=== PATIENT | female | born 1940 | race Caucasian/White ===

== ENCOUNTER 2016-05-11 10:07 | Inpatient (IN) | payer MEDICARE ==
[2016-05-11] MEDS ORDERED: ALBUTEROL/IPRATROPIUM 2.5/0.5 MG 3 ML/EACH DOSE ONE (11:24)
[2016-05-11] MEDS ORDERED: ONDANSETRON 4 MG/2ML 2 ML VIAL ONE (11:39)
[2016-05-11] MEDS ORDERED: SODIUM CHLORIDE 0.9% 1,000 ML ONE (11:39)
[2016-05-11 11:41] LABS: ABSOLUTE NEUTROPHIL COUNT 2.7 K/mm3 (1.8-7.7); BASO % 0.8 % (0.2-1.0); HEMATOCRIT 37.7 % (37.0-47.0); HEMOGLOBIN 12.4 gm/l (12.0-16.0); IMM NEUT% 0.8 % (0-1); LYMPH # 0.5 (1.0-4.8); LYMPH % 13.2 % (15-45); MEAN CELL VOLUME 94.5 fl (81.0-99.0); MEAN CORPUSCULAR HEMOGLOBIN 31.1 pg (27.0-31.0); MEAN CORPUSCULAR HGB CONC 32.9 g/dl (33.0-37.0); MEAN PLATELET VOLUME 9.4 fl (7.4-10.4); MONO # 0.6 (0.0-0.8); MONO % 14.8 % (4-12); NEUT % 70.4 % (43-75); PLATELET COUNT 226 K/mm3 (130-400); RED CELL DISTRIBUTION WIDTH 16.8 % (11.5-14.5)
[2016-05-11 11:45] LABS: SPECIFIC GRAVITY 1.025 (1.001-1.030); URINE BILIRUBIN NEGATIVE (NEGATIVE); URINE BLOOD 3+ (NEGATIVE); URINE GLUCOSE (UA) NEGATIVE (NEGATIVE); URINE LEUKOCYTE ESTERASE NEGATIVE (NEGATIVE); URINE NITRITE POSITIVE (NEGATIVE); URINE PROTEIN 1+ (NEGATIVE); URINE UROBILINOGEN NORMAL (0-1 mg/dl)
[2016-05-11 11:46] LABS: URINE APPEARANCE CLEAR; URINE COLOR YELLOW
--- NOTE | 2016-05-11 11:48 | RAD ---
History: Cough. Comparison: 06/17/2015. Technique: 2 views Findings: The soft tissue and bony structures are appropriate. The heart size is stable. There is no definite consolidation or effusion visualized. A small nodular focus is suggested within the lateral aspect of the right pulmonary apex, more conspicuous than its appearance on prior examinations. The hilar and mediastinal structures are stable. Impression: 1. A 13 mm more conspicuous suggested nodular focus within the lateral portion of the right pulmonary apex. Consideration should be given to a nonemergent CT for further evaluation to exclude the possibility of a developing pulmonary mass. 2. No gross pulmonary consolidation visualized.
[2016-05-11 11:57] LABS: ALB/GLOB RATIO 1.1 (>1.0); ALBUMIN 3.4 gm/dL (3.5-5.7); CALCIUM 8.6 mg/dL (8.6-10.3); URINE RBC 0-1 /hpf
[2016-05-11 11:59] LABS: URINE BACTERIA 3+
[2016-05-11] MEDS ORDERED: ASPIRIN CHEWTAB 81 MG TABLET ONE (12:20)
[2016-05-11] MEDS ORDERED: CEFTRIAXONE 1 GRAM DUPLEX 50 ML IV ONE (13:06)
[2016-05-11 14:27] VITALS: BMI 18.6
[2016-05-11] MEDS ORDERED: BLISTEX LIPSTICK 1 EACH TP PRN (15:12)
[2016-05-11] MEDS ORDERED: SODIUM CHLORIDE 0.9% 100 ML IV PRN (15:12)
[2016-05-11] MEDS ORDERED: MENTHOL/CETYLPYRD 1 EACH LOZENGE PO PRN (15:12)
[2016-05-11] MEDS ORDERED: ACETAMINOPHEN 325 MG TABLET PO PRN (15:12)
[2016-05-11] MEDS ORDERED: BISACODYL 5 MG TABLET.EC PO PRN (15:12)
[2016-05-11] MEDS ORDERED: BISACODYL 10 MG SUP PR PRN (15:12)
[2016-05-11] MEDS ORDERED: MAGNESIUM HYDROXIDE 30 ML UDCUP PO PRN (15:12)
[2016-05-11] MEDS ORDERED: ONDANSETRON 4 MG/2ML 2 ML VIAL IV PRN (15:21)
[2016-05-11] MEDS ORDERED: PUMP TUBING ONE (15:36)
[2016-05-11] MEDS: SODIUM CHLORIDE 0.9% 1,000 ML IV SCH (15:50)
--- NOTE | 2016-05-11 16:13 | CT ---
Exam: CT chest without contrast COMPARISON: CT 03/05/2010, Chest radiograph 05/11/2016, 06/17/[address] abdomen 06/22/2012 INDICATION: Pulmonary nodule. TECHNIQUE: CT examination of the chest was obtained without contrast. FINDINGS: Examination is slightly limited due to motion artifact. There is a 2.1 cm spiculated nodule within the superior segment of the right lower lobe with some internal cavitation which is concerning for malignancy. This is not appreciated on today's chest radiograph due to its location. The nodule seen within the right upper lobe on earlier chest radiograph correlates a 13 mm spiculated nodule, although it is somewhat obscured by the motion artifact. There is a 3 mm nodule within the apex of the right middle lobe which was present on the 12th 05/24/2009 CT and is unchanged. Aside from some minor scarring or atelectasis within the anterior right upper lobe, lingula, and bilateral lower lobes, the lungs are otherwise clear. There is no focal airspace disease. There is a minimal amount of pleural fluid on the right. A minimal amount of pericardial fluid is seen. Dense coronary artery calcifications and/or stents are noted. There is no significant mediastinal or hilar lymphadenopathy by size criteria. Limited evaluation of the upper abdomen demonstrates nephrolithiasis on the left as well as dense vascular calcifications but is otherwise unremarkable. No worrisome lytic or blastic osseous lesion is identified. IMPRESSION: 1. 2.1 cm spiculated nodule with internal cavitation within the superior segment of the right lower lobe which is concerning for malignancy. No CT evidence of metastatic disease. 2. 1.3 cm spiculated nodule within the right upper lobe. Second focus of malignancy cannot be excluded in this location. Report called to Dr. Rivera at 1610 hours 05/11/2016.
--- NOTE | 2016-05-11 16:18 | HP ---
DEAN UMANA : 12/14/1939 DATE OF ADMISSION: May 11, 2016 CHIEF COMPLAINT: Fatigue. HISTORY OF PRESENT ILLNESS: Patient is accompanied by her today. She has had over the last three to four days increasing fatigue with decreasing appetite and some vomiting, congestion with a cough. brought the patient in today just because she has become so weak and virtually no oral intake over the past day. She denies any other complaints of pain, shortness of breath, nausea, vomiting, trouble with urination. In the emergency department, she was found to have an elevated troponin of 0.55. There have been no electrocardiogram changes and no change in her CK-MB index and a lung mass was found on chest x-ray. In review with the in the emergency department, he did not want acute intervention or to be transferred to another facility with promotion producer on staff. They elected to be admitted to our facility for further ongoing evaluation. REVIEW OF SYSTEMS: GENERAL: No fevers or chills. Fatigue and weakness. EENT: No throat pain or congestion. CARDIOVASCULAR: No chest pain or pressure. RESPIRATORY: Chronic cough. No shortness of breath. ABDOMEN: Decreased oral intake. Episode of vomiting. No abdominal pain or diarrhea. GENITOURINARY: No burning or urgency with urination. MUSCULOSKELETAL: Weakness, no muscle aches or pains. NEUROLOGIC: No headaches, numbness, tingling, lightheadedness. PAST MEDICAL HISTORY: Includes: 1. An abdominal aortic aneurysm. 2. Anemia. 3. Anorexia. 4. Cardiovascular disease. 5. Nephrolithiasis. 6. Carotid atherosclerosis. 7. Chronic obstructive pulmonary disease. 8. Coronary artery disease. 9. Dementia. 10. Hypertension. 11. Peripheral vascular disease. 12. Renal artery stenosis. 13. Rheumatoid arthritis. 14. Tobacco use disorder. MEDICATIONS: 1. Losartan. 2. Celebrex. 3. Donepezil. 4. Folic acid. 5. Gabapentin. 6. Lovastatin. 7. Methotrexate. 8. Aspirin. 9. Imitrex. ALLERGIES: 1. CLINDAMYCIN. 2. CODEINE. 3. LISINOPRIL. PAST SURGICAL HISTORY: Hysterectomy. SOCIAL HISTORY: The patient lives with her . She raised three boys. 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 She smokes regularly and drinks eight cups of coffee a day. FAMILY MEDICAL HISTORY: Mother with cancer. PHYSICAL EXAM: VITAL SIGNS: Temperature 98.6, heart rate 52, blood pressure 149/49. She is saturating 96% on room air. GENERAL: She is alert and oriented, no acute distress. She is cooperative. HEENT: Normocephalic, atraumatic. No tenderness to palpation. Mucous membranes are moist. Extraocular muscles are intact. There is no scleral icterus or conjunctival injection. NECK: Supple. Trachea midline. CARDIOVASCULAR: Regular rate and rhythm. Positive S1 and S2. She does have a murmur present. She has peripheral pulses bilaterally radially and posterior tibial. No peripheral edema. RESPIRATORY: Clear to auscultation bilaterally. No rhonchi or wheezing. ABDOMEN: Soft, nontender, no distention, no rebound, no guarding. MUSCULOSKELETAL: Moving extremities without difficulty. They are nontender. NEUROLOGIC: She is alert and oriented. LABORATORY STUDIES: Sodium 135, potassium 4.2, chloride 100, carbon dioxide is 25, BUN 22, creatinine 0.9, glucose 100, calcium 8.6, CK-MB 4.3, troponin 0.55. White blood count 3.9, hemoglobin 12.4, hematocrit 37.7. Urinalysis was obtained. It was yellow and clear, 1+ protein, negative glucose, trace ketones, 3+ blood, positive nitrites, negative leukocyte esterase, 3 to 5 urine white blood cells, 3+ urine bacteria. DIAGNOSTIC IMAGING: Chest x-ray was interpreted as a 13 mm conspicuous suggested nodular focus within the lateral portion of the right pulmonary apex. Consideration should be given to noncontrast CT. No gross pulmonary consolidation visualized. ELECTROCARDIOGRAM: Electrocardiogram was obtained that showed a sinus rhythm and a rate of 73 beats per minute. TX interval of 120 ms, QRS duration 100 ms, QTc of 434 ms. There are no acute ST segment elevations or depressions. She has a left axis deviation. ASSESSMENT: A 75-year-old female with increasing fatigue and decreased oral intake found to have an elevated troponin. PLAN: 1. Non-ST elevation myocardial infarction. Patient is on losartan, lovastatin and aspirin. We will continue these medications. We will add a beta rosa isela as needed depending on heart rate and blood pressure. We will monitor her troponins. As it is unclear if they want interventional therapy performed, we will hold off on stress test at this time. 2. Lung nodule. We will obtain chest CT. Explained to the patient and her that depending on chest CT results, it may be indicative of a cancer where she would need a biopsy and further workup. 3. Dementia. We will continue her donepezil. May complicate care due to possibility of delirium being out of her home environment. 4. Chronic obstructive pulmonary disease. We will provide albuterol treatments as needed. 5. Coronary artery disease puts the patient at high risk for a non-ST elevation myocardial infarction. We will continue her current medications. 6. Rheumatoid arthritis. We will continue her methotrexate and folic acid. 7. Patient is a DO NOT RESUSCITATE. Cc: Linn Renae
[2016-05-11 18:08] LABS: CKMB ISOENZYME 5.2 ng/ml (0.6-6.3)
[2016-05-11 18:09] LABS: TROPONIN I 0.63 ng/ml (0.0-0.06)
[2016-05-11] MEDS: METOPROLOL TARTRATE 25 MG TABLET PO SCH (20:39)
[2016-05-11] MEDS: DOCUSATE SODIUM 100 MG CAPSULE PO SCH (20:40)
[2016-05-11] MEDS: GABAPENTIN 300 MG CAPSULE PO SCH (20:40)
[2016-05-11] MEDS: QUETIAPINE FUMARATE 25 MG TABLET PO PRN (22:32)
[2016-05-11] MEDS: ALBUTEROL/IPRATROPIUM 2.5/0.5 MG 3 ML/EACH DOSE NEB PRN (23:17)
[2016-05-12 00:04] LABS: TROPONIN I 0.57 ng/ml (0.0-0.06)
[2016-05-12 00:05] LABS: CKMB ISOENZYME 5.5 ng/ml (0.6-6.3)
[2016-05-12] MEDS ORDERED: LORAZEPAM 2 MG/ML 1ML SDV IV ONE (01:50)
[2016-05-12] MEDS: SODIUM CHLORIDE 0.9% 1,000 ML IV SCH ×2 (04:58→20:59)
[2016-05-12 06:11] LABS: MEAN CELL VOLUME 94.3 fl (81.0-99.0); MEAN CORPUSCULAR HEMOGLOBIN 31.4 pg (27.0-31.0); MEAN CORPUSCULAR HGB CONC 33.3 g/dl (33.0-37.0); RED CELL DISTRIBUTION WIDTH 16.6 % (11.5-14.5)
[2016-05-12] MEDS: ALBUTEROL/IPRATROPIUM 2.5/0.5 MG 3 ML/EACH DOSE NEB PRN (06:17)
[2016-05-12 06:26] LABS: CALCIUM 7.7 mg/dL (8.6-10.3); CHOLESTEROL RISK RATIO 4.2 (3.7-5.6)
[2016-05-12] MEDS: DOCUSATE SODIUM 100 MG CAPSULE PO SCH ×2 (08:47→20:55)
[2016-05-12] MEDS: ASPIRIN (ENTERIC COATED) 325 MG TABLET.EC PO SCH (08:47)
[2016-05-12] MEDS: FOLIC ACID 1 MG TABLET PO SCH (08:48)
[2016-05-12] MEDS: LOVASTATIN 20 MG TABLET PO SCH (08:49)
[2016-05-12] MEDS: METOPROLOL TARTRATE 25 MG TABLET PO SCH ×2 (08:49→20:55)
[2016-05-12] MEDS: LOSARTAN POTASSIUM 50 MG TABLET PO SCH (08:49)
[2016-05-12] MEDS: CELECOXIB 200 MG CAPSULE PO SCH (08:49)
[2016-05-12] MEDS: DONEPEZIL HCL 5 MG TABLET PO SCH (08:49)
[2016-05-12] MEDS: GABAPENTIN 600 MG TABLET PO SCH (08:49)
[2016-05-12] MEDS ORDERED: METOPROLOL TARTRATE 25 MG TABLET PO ONE (11:15)
--- NOTE | 2016-05-12 12:00 | PDOC43 ---
- Subjective Chief Complaint: Fatigue Was agitated overnight and received lorazapam, now sleeping soundly and cannot be woken. Later, awake and says she feels fine, denies chest pain or dyspnea, poor apatite. - Objective Vital Signs Temperature 99.3 F 05/12/16 08:00 Pulse Rate 73 05/12/16 08:00 Respiratory Rate 39 05/12/16 08:00 Blood Pressure 170/67 05/12/16 08:00 O2 Saturation by Pulse Oximetry 96 05/12/16 08:00 Oxygen Delivery Method Nasal Cannula Oxygen Flow Rate 2 Intake and Output 05/11/16 05/12/16 05/13/16 06:59 06:59 06:59 Intake Total 1985 Output Total 725 Balance 1260 General: Other (snoring), No Acute Distress Lungs: Other (diminished anteriorally) Cardiovascular: Regular Rate and Rhythm, No Murmur Extremities: Normal Pulses, No Edema Skin: Normal Color Laboratory 05/12/16 05:30 05/12/16 05:30 05/12/16 05/11/16 05/11/16 05:30 23:20 17:40 RBC 3.50 L MCH 31.4 H RDW 16.6 H Calcium 7.7 L Troponin I 0.57 H* 0.63 H* Cholesterol 101 L HDL Cholesterol 24 L Current Medications: Current meds reviewed in EMR. - Problems: Assessment/Plan (1) NSTEMI (non-ST elevated myocardial infarction) Status: Acute Assessment/Plan: Continue supportive care. Anticipate medical management only but will need to discuss further with . He does want further evaluation and consultation with [facility]. (2) Lung mass Status: Chronic Assessment/Plan: Two masses found on CT. Will discuss further diagnostic w/u with . He wants to consider cardiac w/u first. Masses not amenable to CT guided needle biopsy, anticipate outpt f/u with pulmonology.. (3) CAD (coronary artery disease) Qualifiers: Coronary Disease-Associated Artery/Lesion type: [place] artery [place] vs. transplanted heart: [place] heart Associated angina: without angina Qualifier Code: (I25.10) Atherosclerotic heart disease of [place] coronary artery without angina pectoris Status: Chronic Assessment/Plan: 40% LAD lesion noted on coronary cath in 1997 Started metoprolol and increased ASA dose. (4) COPD (chronic obstructive pulmonary disease) Qualifiers: COPD type: unspecified COPD Qualifier Code: (J44.9) Chronic obstructive pulmonary disease, unspecified Status: Chronic Assessment/Plan: Not on inhaled meds at home. Hypoxemic and tachypnic due to COPD, add scheduled nebs. (5) Dementia Qualifiers: Dementia type: Alzheimer's disease Alzheimer's disease onset: late- onset Dementia behavioral disturbance: without behavioral disturbance Qualifier Code: (G30.1) Alzheimer's disease with late onset Status: Chronic Assessment/Plan: Continue Donepezil, started quetiapine last p.m., avoid benzos. (6) HTN (hypertension) Qualifiers: Hypertension type: essential hypertension Qualifier Code: (I10) Essential (primary) hypertension Status: Chronic Assessment/Plan: BP is high, increase metoprolol dose. (7) Rheumatoid arthritis Qualifiers: Rheumatoid arthritis location: multiple sites Rheumatoid factor presence: unspecified presence Qualifier Code: (M06.9) Rheumatoid arthritis , unspecified Status: Chronic Assessment/Plan: Continue usual medications. (8) Malnutrition Status: Chronic Assessment/Plan: With low albumin, low cholesterol and low BMI. Due to poor apatite with Alzheimer's disease and possibly lung cancer. (9) Bacteria in urine Status: Acute Assessment/Plan: Asymptomatic, culture pending. VTE Prophylaxis: mechanical
[2016-05-12] MEDS: ALBUTEROL/IPRATROPIUM 2.5/0.5 MG 3 ML/EACH DOSE NEB SCH ×3 (12:43→20:00)
[2016-05-12] MEDS ORDERED: IOPAMIDOL 300 (61%) 150 ML VIAL IV ONE (15:24)
--- NOTE | 2016-05-12 15:49 | CT ---
HEAD W/WO CON: 05/12/2016 2:50 PM CLINICAL HISTORY: Metastatic disease survey. COMPARISON: CT head 01/06/2011 and 07/08/2009. MRI brain with and without contrast 12/07/2006 TECHNIQUE: Contiguous axial 5 mm images from skull base to the vertex were obtained without IV contrast. Sagittal and coronal reformations with bone algorithm images were also obtained at this time. After the uneventful IV administration of 100 mL of Isovue-300 5 mm images were obtained over the same area. Sagittal and coronal reformations are also obtained this time. DLP: 887.3 FINDINGS: Infarct: None Extra axial spaces: Normal in size and morphology for the patient's age. Hemorrhage: None. Ventricular system: Normal in size and morphology for the patient's age. Basal cisterns: Normal. Cerebral parenchyma: Small vessel occlusive change and mild atrophy are again noted.. Midline shift: None. Cerebellum: Normal. Brainstem: Normal. OTHER: Calvarium: Normal. Vascular system: Normal. Visualized Paranasal sinuses and Mastoid air cells: There are air-fluid levels within the bilateral sphenoid sinuses. Minimal mucosal thickening is present throughout the ethmoid air cells.. Visualized Orbits and regional soft tissues: Normal. Postcontrast imaging: No enhancing lesions are identified. 2 vertebral arteries form the basilar artery. IMPRESSION: No acute intracranial process. No enhancing lesion. Small vessel occlusive disease and atrophy are again identified. Multifocal sinus disease as above.
--- NOTE | 2016-05-12 15:55 | CT ---
Exam Type: ABD/PELVIS W/ CON Date and Time: 05/12/2016 2:50 PM Clinical information: Patient with known lung mass question of metastatic disease. Comparison: CT chest without contrast 05/11/2016. CT abdomen pelvis with contrast 06/22/2012. Technique: Contiguous axial 4 mm images were obtained from the lung bases through the pelvis after the uneventful IV administration of 100 cc of Isovue-300. Sagittal and coronal reformations with high resolution lung algorithm images were also obtained at this time. Patient has dementia and is unable to follow breathing instructions. CT DI: 6.0 DLP 275.7 FINDINGS: Lung base : Dependent and atelectatic changes are noted at the lung bases. There is no pericardial effusion. Visualized heart:There is no pericardial effusion. LIVER: Diffuse fatty infiltration BILE DUCTS: normal caliber. GALLBLADDER: No calcified gallstones. Normal caliber wall. PANCREAS: within normal limits. SPLEEN: within normal limits. ADRENALS: within normal limits. KIDNEYS: within normal limits. Stomach and small BOWEL: Normal caliber. Large bowel: Air and stool are noted within the large bowel. Appendix is normal. LYMPH NODES: No enlarged mesenteric lymph nodes. PERITONEUM: Small amount of free fluid is noted in the dependent portion of the right pelvis of unknown clinical significance. VESSELS: AAA measuring 3.2 x 3.3 cm on image 40. This has mildly progressed from prior study. Extensive atherosclerotic disease is noted of the iliac vessels bilaterally. RETROPERITONEUM: within normal limits. ABDOMINAL WALL: within normal limits. Bladder: Normal Uterus and adnexa: Normal BONES: There has been interval Schmorl's node or compression deformity to the superior endplate of L5 without evidence of retropulsion. This is of unknown chronicity. No lytic or sclerotic lesions are present. Spine maintains anatomic alignment. IMPRESSION: No evidence of metastatic disease is identified given limitations as above. Mild worsening of the patient's AAA. Schmorl's node versus superior endplate compression of L5 without retropulsion of bone material. Other incidental findings as above.
[2016-05-12] MEDS: CEFTRIAXONE 1 GRAM DUPLEX 1 G in Premix (D5W) 50 ml 1 EACH IV SCH (17:03)
[2016-05-12] MEDS: QUETIAPINE FUMARATE 25 MG TABLET PO PRN (20:55)
[2016-05-12] MEDS: GABAPENTIN 300 MG CAPSULE PO SCH (20:55)
[2016-05-13 06:49] LABS: HEMATOCRIT 36.8 % (37.0-47.0); HEMOGLOBIN 11.7 gm/l (12.0-16.0); MEAN CELL VOLUME 96.6 fl (81.0-99.0); MEAN CORPUSCULAR HEMOGLOBIN 30.7 pg (27.0-31.0); MEAN CORPUSCULAR HGB CONC 31.8 g/dl (33.0-37.0); RED CELL DISTRIBUTION WIDTH 17.2 % (11.5-14.5)
[2016-05-13] MEDS: ALBUTEROL/IPRATROPIUM 2.5/0.5 MG 3 ML/EACH DOSE NEB SCH ×4 (07:04→20:11)
[2016-05-13] MEDS ORDERED: FUROSEMIDE 20 MG/2 ML VIAL IV ONE ×2 (07:16→13:26)
[2016-05-13] MEDS ORDERED: METOPROLOL TARTRATE 1 MG/ML 5ML VIAL IV ONE (07:21)
--- NOTE | 2016-05-13 07:27 | PDOC43 ---
- Subjective Chief Complaint: Fatigue Patient slept well overnight. She was appropriate when awake and talking with staff. Had sudden decompensation at about 0645 with tachycardia, tachypnea and hypoxemia. Now is awake but not responding verbally to questions. - Objective Vital Signs Temperature 100.1 F 05/13/16 06:52 Pulse Rate 133 05/13/16 06:52 Respiratory Rate 33 05/13/16 06:52 Blood Pressure 174/83 05/13/16 06:52 O2 Saturation by Pulse Oximetry 96 05/13/16 06:52 Oxygen Delivery Method Non-Rebreather Oxygen Flow Rate 15 Intake and Output 05/11/16 05/12/16 05/13/16 06:59 06:59 06:59 Intake Total 1985 2353 Output Total 725 502 Balance 1260 1851 General: Alert, Acute Distress (appears dyspnic, using accessory muscles), No Oriented x3, No Cooperative Lungs: Other (exp wheezing throughout, poor air movement) Cardiovascular: Regular Rate and Rhythm (rapid) Abdomen: Soft, No Tenderness Extremities: Pulses Diminished but Palpable, No Edema Skin: Other (pale) Laboratory 05/13/16 06:45 05/13/16 05:00 05/13/16 05/13/16 05/12/16 06:45 05:00 05:30 RBC 3.81 L MCHC 31.8 L RDW 17.2 H Calcium 8.0 L Troponin I 0.48 H Current Medications: Current meds reviewed in EMR. - Problems: Assessment/Plan (1) NSTEMI (non-ST elevated myocardial infarction) Status: AcuteAssessment/Plan: After discussion with [facility], plan had been for Lexiscan/MPI this a.m., but current condition precludes that. EKG unchanged except for tachycardia. Troponin pending. May have acute pulmonary edema due to AMI, will check CXR, trial BiPAP, give furosemide. (2) Lung mass Status: ChronicAssessment/Plan: Two masses found on CT. Masses not amenable to CT guided needle biopsy, anticipate outpt f/u with pulmonology.. (3) CAD (coronary artery disease) Qualifiers: Coronary Disease-Associated Artery/Lesion type: [place] artery [place] vs. transplanted heart: [place] heart Associated angina: without angina Qualifier Code: (I25.10) Atherosclerotic heart disease of [place] coronary artery without angina pectoris Status: ChronicAssessment/Plan: 40% LAD lesion noted on coronary cath in 1997 Started metoprolol and increased ASA dose. (4) COPD (chronic obstructive pulmonary disease) Qualifiers: COPD type: unspecified COPD Qualifier Code: (J44.9) Chronic obstructive pulmonary disease, unspecified Status: ChronicAssessment/Plan: Not on inhaled meds at home. Hypoxemic and tachypnic due to COPD and scheduled nebs were added 05/12. Had been improving then had sudden decompensation this a.m. Trial of BiPAP. (5) Dementia Qualifiers: Dementia type: Alzheimer's disease Alzheimer's disease onset: late- onset Dementia behavioral disturbance: without behavioral disturbance Qualifier Code: (G30.1) Alzheimer's disease with late onset Status: Chronic Assessment/Plan: Continue Donepezil, started quetiapine 05/11, avoid benzos. (6) HTN (hypertension) Qualifiers: Hypertension type: essential hypertension Qualifier Code: (I10) Essential (primary) hypertension Status: ChronicAssessment/Plan: BP is high, increase metoprolol dose. (7) Rheumatoid arthritis Qualifiers: Rheumatoid arthritis location: multiple sites Rheumatoid factor presence: unspecified presence Qualifier Code: (M06.9) Rheumatoid arthritis , unspecified Status: ChronicAssessment/Plan: Continue usual medications. (8) Malnutrition Status: ChronicAssessment/Plan: With low albumin, low cholesterol and low BMI. Due to poor apatite with Alzheimer's disease and possibly lung cancer. (9) UTI (urinary tract infection) Qualifiers: Urinary tract infection type: acute cystitis Hematuria presence: without hematuria Qualifier Code: (N30.00) Acute cystitis without hematuria Status: AcuteAssessment/Plan: Present on admit and treated with ceftriaxone. Culture growing E coli. VTE Prophylaxis: mechanical Disposition: will remain in [facility] today
--- NOTE | 2016-05-13 07:32 | RAD ---
Exam: Portable chest COMPARISON: 05/11/2016, 06/17/[address] chest 05/11/2016 INDICATION: Tachypnea and hypoxemia. FINDINGS: A semierect AP portable view of the chest at 0723 hours demonstrates borderline cardiomegaly. There has been interval increase in pulmonary vascular congestion and mild bibasilar prominent interstitial opacities are now noted. There is minor thickening of the minor fissure without definite pleural effusion. Minor atelectasis or scarring is noted within the left midlung zone. Bones of the chest wall are intact. IMPRESSION: Increase in pulmonary vascular congestion and mild bibasilar interstitial opacities, correlate for congestive heart failure.
[2016-05-13] MEDS: DOCUSATE SODIUM 100 MG CAPSULE PO SCH ×2 (11:17→21:03)
[2016-05-13] MEDS: SODIUM CHLORIDE 0.9% 1,000 ML IV SCH (13:36)
[2016-05-13] MEDS: METOPROLOL TARTRATE 1 MG/ML 5ML VIAL IV SCH ×3 (13:45→23:52)
[2016-05-13] MEDS: LOVASTATIN 20 MG TABLET PO SCH (13:46)
[2016-05-13] MEDS: FOLIC ACID 1 MG TABLET PO SCH (13:46)
[2016-05-13] MEDS: DONEPEZIL HCL 5 MG TABLET PO SCH (13:46)
[2016-05-13] MEDS: LOSARTAN POTASSIUM 50 MG TABLET PO SCH (13:46)
[2016-05-13] MEDS: CELECOXIB 200 MG CAPSULE PO SCH (13:46)
[2016-05-13] MEDS: ASPIRIN (ENTERIC COATED) 325 MG TABLET.EC PO SCH (13:46)
[2016-05-13] MEDS: GABAPENTIN 600 MG TABLET PO SCH (13:46)
[2016-05-13] MEDS ORDERED: PUMP TUBING ONE (16:40)
[2016-05-13] MEDS: CEFTRIAXONE 1 GRAM DUPLEX 1 G in Premix (D5W) 50 ml 1 EACH IV SCH (16:47)
[2016-05-13] MEDS: GABAPENTIN 300 MG CAPSULE PO SCH (21:03)
[2016-05-14] MEDS: QUETIAPINE FUMARATE 25 MG TABLET PO PRN (01:11)
[2016-05-14] MEDS: METOPROLOL TARTRATE 1 MG/ML 5ML VIAL IV SCH (05:27)
[2016-05-14] MEDS: ALBUTEROL/IPRATROPIUM 2.5/0.5 MG 3 ML/EACH DOSE NEB SCH ×4 (07:25→20:12)
[2016-05-14] MEDS ORDERED: METHOTREXATE 2.5 MG TABLET PO SCH (09:00)
[2016-05-14] MEDS: LOSARTAN POTASSIUM 50 MG TABLET PO SCH (09:57)
[2016-05-14] MEDS: LOVASTATIN 20 MG TABLET PO SCH (09:57)
[2016-05-14] MEDS: FOLIC ACID 1 MG TABLET PO SCH (09:57)
[2016-05-14] MEDS: ASPIRIN (ENTERIC COATED) 325 MG TABLET.EC PO SCH (09:57)
[2016-05-14] MEDS: GABAPENTIN 600 MG TABLET PO SCH (09:58)
[2016-05-14] MEDS: DOCUSATE SODIUM 100 MG CAPSULE PO SCH ×2 (10:00→20:29)
[2016-05-14] MEDS: DONEPEZIL HCL 5 MG TABLET PO SCH (10:00)
[2016-05-14] MEDS: CELECOXIB 200 MG CAPSULE PO SCH (10:00)
--- NOTE | 2016-05-14 10:50 | PDOC43 ---
- Subjective Chief Complaint: Fatigue Sitting up in bed on room air, denies complaints, does say she is hungry. - Objective Vital Signs Temperature 98.6 F 05/14/16 06:47 Pulse Rate 74 05/14/16 07:26 Respiratory Rate 26 05/14/16 07:26 Blood Pressure 119/62 05/14/16 10:00 O2 Saturation by Pulse Oximetry 94 05/14/16 07:26 Oxygen Delivery Method Room Air Oxygen Flow Rate 0 Intake and Output 05/13/16 05/14/16 05/15/16 06:59 06:59 06:59 Intake Total 2353 484 Output Total 502 1455 Balance 1851 -971 General: Alert, Cooperative, No Oriented x3, No Acute Distress HEENT: Mucous membr. moist/pink Lungs: Clear to Auscultation Bilaterally Cardiovascular: Irregular Abdomen: Soft, Hypoactive Bowel Sounds, No Tenderness, No Masses Genitourinary: Indwelling Urinary Cath Extremities: Pulses Diminished but Palpable, No Edema Skin: Normal Color Laboratory 05/13/16 06:45 05/13/16 05:00 Current Medications: Current meds reviewed in EMR. - Problems: Assessment/Plan (1) NSTEMI (non-ST elevated myocardial infarction) Status: AcuteAssessment/Plan: Had acute pulmonary edema and acute hypoxemic respiratory failure requiring BiPAP yesterday a.m. secondary to NSTEMI. Improved rapidly with diuresis. EKG unchanged except for tachycardia. Continuye ASA and metoprolol, no further w/u planned at this time. (2) Lung mass Status: ChronicAssessment/Plan: Two masses found on CT. Masses not amenable to CT guided needle biopsy but highly likely to be malignant disease. Discussed with family yesterday and given recent decline with loss of apatite, priority and plan is to get patient home with hospice services. (3) CAD (coronary artery disease) Qualifiers: Coronary Disease-Associated Artery/Lesion type: [place] artery [place] vs. transplanted heart: [place] heart Associated angina: without angina Qualifier Code: (I25.10) Atherosclerotic heart disease of [place] coronary artery without angina pectoris Status: ChronicAssessment/Plan: 40% LAD lesion noted on coronary cath in 1997 Started metoprolol and increased ASA dose. (4) COPD (chronic obstructive pulmonary disease) Qualifiers: COPD type: unspecified COPD Qualifier Code: (J44.9) Chronic obstructive pulmonary disease, unspecified Status: ChronicAssessment/Plan: Not on inhaled meds at home. (5) Dementia Qualifiers: Dementia type: Alzheimer's disease Alzheimer's disease onset: late- onset Dementia behavioral disturbance: without behavioral disturbance Qualifier Code: (G30.1) Alzheimer's disease with late onset Status: Chronic Assessment/Plan: Continue Donepezil, started quetiapine /, avoid benzos. (6) HTN (hypertension) Qualifiers: Hypertension type: essential hypertension Qualifier Code: (I10) Essential (primary) hypertension Status: ChronicAssessment/Plan: BP well controlled, continue metoprolol (7) Rheumatoid arthritis Qualifiers: Rheumatoid arthritis location: multiple sites Rheumatoid factor presence: unspecified presence Qualifier Code: (M06.9) Rheumatoid arthritis , unspecified Status: ChronicAssessment/Plan: Continue usual medications. (8) Malnutrition Status: ChronicAssessment/Plan: With low albumin, low cholesterol and low BMI. Due to poor apatite with Alzheimer's disease and presumed lung cancer. (9) UTI (urinary tract infection) Qualifiers: Urinary tract infection type: acute cystitis Hematuria presence: without hematuria Qualifier Code: (N30.00) Acute cystitis without hematuria Status: AcuteAssessment/Plan: Present on admit and treated with ceftriaxone. Culture growing E coli. D/C antibiotic on discharge. VTE Prophylaxis: mechanical Disposition: transfer to med/surg, possible discharge home with hospice.
[2016-05-14] MEDS ORDERED: IV START KIT ONE (16:09)
[2016-05-14] MEDS ORDERED: SODIUM CHLORIDE 0.9% FLUSH 10 ML ONE (16:09)
[2016-05-14] MEDS: METOPROLOL TARTRATE 25 MG TABLET PO SCH (20:29)
[2016-05-14] MEDS: GABAPENTIN 300 MG CAPSULE PO SCH (20:29)
[2016-05-15 07:40] VITALS: BP 128/64
[2016-05-15] MEDS: DONEPEZIL HCL 5 MG TABLET PO SCH (08:53)
[2016-05-15] MEDS: GABAPENTIN 600 MG TABLET PO SCH (08:53)
[2016-05-15] MEDS: LOVASTATIN 20 MG TABLET PO SCH (08:53)
[2016-05-15] MEDS: LOSARTAN POTASSIUM 50 MG TABLET PO SCH (08:53)
[2016-05-15] MEDS: METOPROLOL TARTRATE 25 MG TABLET PO SCH (08:53)
[2016-05-15] MEDS: CELECOXIB 200 MG CAPSULE PO SCH (08:53)
[2016-05-15] MEDS: FOLIC ACID 1 MG TABLET PO SCH (08:54)
[2016-05-15] MEDS: DOCUSATE SODIUM 100 MG CAPSULE PO SCH (08:54)
[2016-05-15] MEDS: ASPIRIN (ENTERIC COATED) 325 MG TABLET.EC PO SCH (08:54)
[2016-05-15] MEDS: ALBUTEROL/IPRATROPIUM 2.5/0.5 MG 3 ML/EACH DOSE NEB SCH (08:58)
--- NOTE | 2016-05-15 11:42 | DS ---
DEAN UMANA [id number] : 1940 DATE OF ADMISSION: May 11, 2016 DATE OF DISCHARGE: May 15, 2016 ADMIT DIAGNOSES: 1. Non-ST elevation acute myocardial infarction. 2. Lung nodules. 3. Dementia. 4. Chronic obstructive pulmonary disease. 5. Rheumatoid arthritis. DISCHARGE DIAGNOSES: 1. Acute non-ST elevation myocardial infarction. 2. Acute pulmonary edema with hypoxemic respiratory failure requiring BIPAP treatment on May 13, 2016 secondary to the acute myocardial infarction. 3. Two spiculated lung masses highly likely to represent lung cancer. 4. Coronary artery disease with previously demonstrated left anterior descending artery lesion on coronary catheterization in 1997. 5. Chronic obstructive pulmonary disease. 6. Dementia, likely Alzheimer's disease with functional decline. 7. Benign essential hypertension. 8. Rheumatoid arthritis. 9. Malnutrition with low albumin, low cholesterol, and low body mass index secondary to Alzheimer's disease and poor appetite. 10. Urinary tract infection with Escherichia coli present on admission. PROCEDURES: 1. CT of the chest on May 11, 2016. This demonstrated 2.1 cm spiculated nodule with internal cavitation in the superior segment of the right lower lobe and a 1.3 cm spiculated nodule in the right upper lobe. 2. Echocardiogram on May 11, 2016. This showed preserved ejection fraction at 50 to 55% but akinesis of the inferior and inferolateral base. 3. Abdominal and pelvic CT scan on May 12, 2016. Negative for metastatic disease, increase in the size of patient's known abdominal aortic aneurysm. 4. CT of the brain on May 12, 2016 showing small vessel ischemic changes and atrophy. No metastatic disease. CONSULTATIONS: Physical and occupational therapy. Patient had very limited functional status and therapies were discontinued when the decision was made to admit to Hospice. HISTORY ON ADMISSION: Ms. Umana is a 75-year-old followed by Rozina Mora. She was brought in by her with a three to four day history of increasing fatigue, decreasing appetite and vomiting. She had been noted to have congestion and cough. She denied significant complaints but on evaluation, she was found to have elevated troponin and also the lung masses. HOSPITAL COURSE: The patient was admitted to intermediate care. She was treated with losartan, lovastatin, and aspirin, and later metoprolol was added. She was given albuterol treatments for her chronic obstructive pulmonary disease. She had ongoing mild hypoxemia and denied complaints of dyspnea or chest pain. Her troponin was gradually decreasing. Then on the morning of May 13, 2016, she had sudden decompensation with tachycardia, tachypnea and hypoxemia and required treatment with BiPAP. This acute respiratory failure was felt to be due to acute pulmonary edema from her myocardial infarction. She responded to diuresis and by the following day was saturating well on 1 liter of supplemental oxygen by nasal cannula. Multiple discussions of goals of care were held with the patient's and sons during the hospitalization. Initially there was interest in further cardiac evaluation, but after the episode of acute respiratory failure, family did feel that the goal would be to get the patient home and keep her comfortable. [facility] was consulted and plans to admit her with transfer to home on May 15, 2016. DISCHARGE EXAM: VITAL SIGNS: Temperature 98.1 degrees Fahrenheit, pulse 97, blood pressure 128/64, respiratory rate 20, oxygen saturation 94% on 1 liter of oxygen by nasal cannula. GENERAL: Patient is awake and alert. She denies chest pain, shortness of breath, or other complaints. She reports poor appetite and has only had a couple of bites of toast for breakfast but says she is done eating. CHEST: Shows decreased air movement, slight expiratory wheezing. HEART: Regular. ABDOMEN: Soft and nontender. EXTREMITIES: No edema. Trace peripheral pulses. DISCHARGE PLAN: 1. Discharge to home. 2. She will be admitted to [facility] today. 3. Follow up with Rozina Mora as needed. DISCHARGE ACTIVITY: As tolerated. She is very weak and essentially bedfast at this time. DISCHARGE MEDICATIONS: 1. Docusate sodium 100 mg orally twice daily. 2. Metoprolol tartrate 25 mg orally twice daily. 3. Acetaminophen 650 mg orally every six hours as needed. 4. Aspirin 325 mg orally daily. 5. Lorazepam 1 mg orally every hour for anxiety or dyspnea. Prescription for 14 tablets. 6. Morphine 20 mg per mL, 5 mg orally every hour as needed for pain or dyspnea. Prescription for 30 mL. 7. Haloperidol 1 mg orally every one hour as needed for nausea or terminal restlessness. Prescription for 14 tablets. 8. Gabapentin 600 mg orally each morning. 9. Losartan 50 mg orally daily. 10. Donepezil 10 mg orally daily. 11. Gabapentin 300 mg orally at bedtime. 12. The following medications were stopped: aspirin, folic acid, methotrexate, lovastatin and Celebrex. Greater than 30 minutes was spent on direct patient care and coordination of care on the day of discharge. cc: Linn Renae
== END 2016-05-15 11:30 | disposition hospice, home (50) | DRG 280 ==
LOC: ED 10:07 → ICU 13:34
PROVIDERS: ADMIT Family Medicine; ATTEND Family Medicine
DX: I21.4 Non-ST elevation (NSTEMI) myocardial infarction (principal); J96.01 Acute respiratory failure with hypoxia; J81.1 Chronic pulmonary edema; N39.0 Urinary tract infection, site not specified; E46 Unspecified protein-calorie malnutrition; R91.1 Solitary pulmonary nodule; F03.90 Unspecified dementia, unspecified severity, without behavioral disturbance, psychotic disturbance, mood disturbance, and anxiety; J44.9 Chronic obstructive pulmonary disease, unspecified; I25.10 Atherosclerotic heart disease of native coronary artery without angina pectoris; M06.9 Rheumatoid arthritis, unspecified; Z66 Do not resuscitate; I10 Essential (primary) hypertension; B96.20 Unspecified Escherichia coli [E. coli] as the cause of diseases classified elsewhere